=== PATIENT | female | born 1985 | race Hispanic/Latino ===

== ENCOUNTER 2017-07-15 21:08 | Emergency (ER) | payer OTHER ==
[~2017-07-15] VITALS: Ht 154.9 cm; Wt 52.2 kg
[2017-07-15] MEDS ORDERED: KETOROLAC TROMETHAMINE 60 MG/2 ML VIAL IM ONE (21:45)
== END 2017-07-15 22:10 | disposition home or self-care (01) ==
LOC: ER 21:08
DX: G44.211 Episodic tension-type headache, intractable (principal)
CPT/HCPCS: 99282; J1885